=== PATIENT | male | born 1970 | race African-American/Black ===

== ENCOUNTER 2021-04-24 02:23 | Inpatient (IN) | payer MEDICAID, OTHER ==
[~2021-04-24] VITALS: Ht 193 cm; Wt 125.5 kg
[2021-04-24] MEDS ORDERED: DexAMETHasone SOD PHOS 10MG/1ML VIAL INJ IV ONE (04:00)
[2021-04-24] MEDS ORDERED: KETOROLAC TROMETH 30 MG/ML 1ML VIAL IV ONE (04:00)
[2021-04-24 04:06] LABS: Basophils # (auto) 0 10 ^3/uL (0-0.2); Basophils % (auto) 0.2 % (0.0-2.0); Eosinophils # (auto) 0 10 ^3/uL (0-0.8); Hematocrit 43.2 % (41.0-53.0); Hemoglobin 14.6 g/dL (13.5-17.5); Lymphocytes # (auto) 0.4 10 ^3/uL (0.4-5.4); Mean Corpuscular Hemoglobin 29.3 pg (28.0-32.0); Mean Corpuscular Hgb Conc. 33.7 g/dL (32.0-36.0); Monocytes # (auto) 0.3 10 ^3/uL (0-1.3); Neutrophils # (auto) 8.3 10 ^3/uL (1.6-8.6); Neutrophils % (auto) 92.8 % (37.0-80.0); Nucleated Red Blood Cells % 0.1 %; Red Blood Cells 4.96 10^6/uL (4.5-5.90); Red Cell Distribution Width 13.6 % (11.8-14.3); White Blood Cell 8.9 10^3/uL (4.4-10.8)
[2021-04-24 04:18] LABS: Albumin 3.2 g/dL (3.4-5.0); Calcium 8.4 mg/dL (8.5-10.1); Potassium 3.8 mmol/L (3.5-5.1)
[2021-04-24 04:26] LABS: BUN/Creatinine Ratio 11.3; Bilirubin, Total 0.7 mg/dL (0.2-1.0); Total Protein 7.9 g/dL (6.4-8.2)
[2021-04-24] MEDS ORDERED: cefTRIAXone 1GM/50ML D5W 50 ML IV ONE (07:15)
[2021-04-24] MEDS ORDERED: NITROGLYCERIN 0.4 MG SL TAB SL PRN (08:00)
[2021-04-24] MEDS ORDERED: AZITHROMYCIN 500MG/ 250ML 250 ML IV ONE (08:00)
[2021-04-24] MEDS ORDERED: DOCUSATE SOD 100 MG CAP PO PRN (08:00)
[2021-04-24] MEDS ORDERED: ACETAMINOPHEN 325 MG TAB PO PRN (08:00)
[2021-04-24] MEDS ORDERED: MORPHINE SULFATE INJECTION 2 MG/ML SYRG IV PRN (08:00)
[2021-04-24] MEDS ORDERED: HYDROcodone-ACET 5/325MG TAB PO PRN (08:00)
[2021-04-24] MEDS: POTASSIUM CHL 20MEQ/100ML 100 ML IV SCH ×2 (09:47→12:40)
[2021-04-24] MEDS: levoFLOXacin 500MG 100 ML IV SCH (09:47)
[2021-04-24] MEDS: ZINC SULFATE 220mg CAP or TAB PO SCH (09:47)
[2021-04-24] MEDS: MULTIPLE VITAMIN TAB PO SCH (09:47)
[2021-04-24] MEDS: ENOXAPARIN SOD 40 MG/0.4 ML SYRINGE SC SCH (09:48)
[2021-04-24] MEDS: ASCORBIC ACID 500 MG TAB PO SCH ×2 (09:48→20:46)
[2021-04-24 12:20] VITALS: BP 129/82
[2021-04-24 12:30] VITALS: BP 140/86
[2021-04-24] MEDS: ACETAMINOPHEN 500 MG TAB PO PRN ×2 (13:36→23:56)
[2021-04-24] MEDS ORDERED: REMDESIVIR PER PHARMACY 0 ML IV SCH (16:00)
[2021-04-24 17:00] VITALS: BP 153/89
[2021-04-24] MEDS ORDERED: REMDESIVIR 200 MG in NS 210ml LOADING DOSE ADULT IV ONE (18:00)
[2021-04-24 20:00] VITALS: BP 135/85
[2021-04-24] MEDS: ALBUTEROL SULF HFA 90MCG INH 200DOSE IN PRN (21:48)
[2021-04-24] MEDS: BUDESONIDE (INHALATION) 180 MCG IH IN SCH (21:48)
[2021-04-24 22:00] VITALS: BP 135/85
[2021-04-24] MEDS: MORPHINE SULFATE 4 MG/ML SYR/VIAL IV PRN (23:56)
[2021-04-25] VITALS (10 sets, daily range): BP systolic 131–161; BP diastolic 78–119
[2021-04-25 05:41] LABS: Basophils # (auto) 0 10 ^3/uL (0-0.2); Basophils % (auto) 0.4 % (0.0-2.0); Eosinophils # (auto) 0 10 ^3/uL (0-0.8); Hematocrit 43.4 % (41.0-53.0); Hemoglobin 14.5 g/dL (13.5-17.5); Lymphocytes # (auto) 0.8 10 ^3/uL (0.4-5.4); Lymphocytes % (auto) 7.6 % (10.0-50.0); Mean Corpuscular Hemoglobin 29.1 pg (28.0-32.0); Mean Corpuscular Hgb Conc. 33.3 g/dL (32.0-36.0); Mean Corpuscular Volume 87.4 fL (80.0-100.0); Monocytes # (auto) 0.3 10 ^3/uL (0-1.3); Neutrophils # (auto) 9.5 10 ^3/uL (1.6-8.6); Red Blood Cells 4.97 10^6/uL (4.5-5.90); White Blood Cell 10.7 10^3/uL (4.4-10.8)
[2021-04-25 06:00] LABS: Albumin 2.7 g/dL (3.4-5.0); BUN/Creatinine Ratio 10.3; Potassium 4.7 mmol/L (3.5-5.1)
[2021-04-25 06:03] LABS: Bilirubin, Total 0.8 mg/dL (0.2-1.0); Total Protein 6.7 g/dL (6.4-8.2)
[2021-04-25] MEDS: ALBUTEROL SULF HFA 90MCG INH 200DOSE IN PRN ×2 (06:08→23:29)
[2021-04-25] MEDS: BUDESONIDE (INHALATION) 180 MCG IH IN SCH ×3 (06:08→22:00)
[2021-04-25] MEDS: ACETAMINOPHEN 500 MG TAB PO PRN (07:54)
[2021-04-25] MEDS: ZINC SULFATE 220mg CAP or TAB PO SCH (10:28)
[2021-04-25] MEDS: levoFLOXacin 500MG 100 ML IV SCH (10:28)
[2021-04-25] MEDS: MULTIPLE VITAMIN TAB PO SCH (10:28)
[2021-04-25] MEDS: IVERMECTIN 3 MG TAB PO SCH (10:28)
[2021-04-25] MEDS: ENOXAPARIN SOD 40 MG/0.4 ML SYRINGE SC SCH (10:29)
[2021-04-25] MEDS: ASCORBIC ACID 500 MG TAB PO SCH ×2 (10:29→22:53)
[2021-04-25] MEDS: REMDESIVIR 100mg 100 MG in SODIUM CHL 0.9% 230 ML IV SCH (16:31)
[2021-04-25] MEDS ORDERED: hydrALAZINE HCL 20 MG/ML VL IV PRN (18:00)
[2021-04-26] MEDS: MORPHINE SULFATE 4 MG/ML SYR/VIAL IV PRN (01:21)
[2021-04-26 05:00] VITALS: BP 128/67
[2021-04-26] MEDS: ALBUTEROL SULF HFA 90MCG INH 200DOSE IN PRN (08:58)
[2021-04-26] MEDS: BUDESONIDE (INHALATION) 180 MCG IH IN SCH ×2 (08:58→18:56)
[2021-04-26 09:00] VITALS: BP 158/84
[2021-04-26] MEDS: levoFLOXacin 500MG 100 ML IV SCH (10:09)
[2021-04-26] MEDS: IVERMECTIN 3 MG TAB PO SCH (10:10)
[2021-04-26] MEDS: ASCORBIC ACID 500 MG TAB PO SCH ×2 (10:10→22:00)
[2021-04-26] MEDS: MULTIPLE VITAMIN TAB PO SCH (10:10)
[2021-04-26] MEDS: ENOXAPARIN SOD 40 MG/0.4 ML SYRINGE SC SCH (10:10)
[2021-04-26] MEDS: ZINC SULFATE 220mg CAP or TAB PO SCH (10:10)
[2021-04-26 11:15] LABS: Potassium 4.4 mmol/L (3.5-5.1)
[2021-04-26 11:25] LABS: Albumin 2.6 g/dL (3.4-5.0); BUN/Creatinine Ratio 18.1; Bilirubin, Total 0.9 mg/dL (0.2-1.0); Calcium 8.4 mg/dL (8.5-10.1); Total Protein 7.2 g/dL (6.4-8.2)
[2021-04-26 13:00] VITALS: BP 128/74
[2021-04-26] MEDS: REMDESIVIR 100mg 100 MG in SODIUM CHL 0.9% 230 ML IV SCH (14:12)
[2021-04-26 16:39] VITALS: BP 160/100
[2021-04-26 22:00] VITALS: BP 158/97
[2021-04-27] VITALS (24 sets, daily range): BP systolic 93–167; BP diastolic 50–109
[2021-04-27] MEDS: ALBUTEROL SULF 2.5 MG/0.5ML(0.5%) NEB SOLN NEB PRN ×2 (06:37→22:37)
[2021-04-27] MEDS: BUDESONIDE (INHALATION) 0.5 MG/2 ML NEB NEB SCH ×2 (06:37→22:38)
[2021-04-27] MEDS: ASCORBIC ACID 500 MG TAB PO SCH ×2 (09:18→22:31)
[2021-04-27] MEDS: levoFLOXacin 500MG 100 ML IV SCH (09:18)
[2021-04-27] MEDS: ZINC SULFATE 220mg CAP or TAB PO SCH (09:18)
[2021-04-27] MEDS: MULTIPLE VITAMIN TAB PO SCH (09:18)
[2021-04-27] MEDS: ENOXAPARIN SOD 40 MG/0.4 ML SYRINGE SC SCH ×2 (09:18→22:31)
[2021-04-27] MEDS: ACETAMINOPHEN 500 MG TAB PO PRN (09:20)
[2021-04-27] MEDS: IVERMECTIN 3 MG TAB PO SCH (09:41)
[2021-04-27] MEDS ORDERED: LORazepam 2MG/ML-1ML VIAL IV PRN (10:00)
[2021-04-27] MEDS ORDERED: ACETAMINOPHEN 650 MG RECT SUPP PR PRN (12:00)
[2021-04-27] MEDS: ACETAMINOPHEN 650 MG RECT SUPP PR PRN ×2 (13:58→23:24)
[2021-04-27] MEDS ORDERED: METOPROLOL TARTRATE 1MG/1ML-5ML VIAL IV ONE (15:00)
[2021-04-27] MEDS ORDERED: METOPROLOL SUCCINATE XL 50 MG TAB PO ONE (15:15)
[2021-04-27 15:34] LABS: Albumin 2.4 g/dL (3.4-5.0); Calcium 8.7 mg/dL (8.5-10.1); Potassium 4.6 mmol/L (3.5-5.1)
[2021-04-27 15:37] LABS: BUN/Creatinine Ratio 19.1; Bilirubin, Total 1.2 mg/dL (0.2-1.0)
[2021-04-27] MEDS: REMDESIVIR 100mg 100 MG in SODIUM CHL 0.9% 230 ML IV SCH (15:59)
[2021-04-27] MEDS ORDERED: SUCCINYLCHOLINE CHLORIDE 20 MG/ML 10ML VIAL IV ONE (16:14)
[2021-04-27] MEDS ORDERED: ROCURONIUM 10MG/ML 10ML VIAL IV ONE (16:14)
[2021-04-27] MEDS ORDERED: ETOMIDATE (2MG/ML) 20ML VIAL IV ONE (16:14)
[2021-04-27] MEDS ORDERED: NOREPINEPHRINE 8 MG/250ML KIT 250 ML IV ONE (16:24)
[2021-04-27] MEDS ORDERED: PROPOFOL 100 ML IV ONE (16:24)
[2021-04-27] MEDS ORDERED: fentaNYL Drip 2500mCg/250mlNS 250 ML IV ONE (16:25)
[2021-04-27] MEDS ORDERED: PROPOFOL 200 ML IV ONE (18:45)
[2021-04-27] MEDS: NOREPINEPHRINE 8 MG/250ML KIT 250 ML IV SCH (20:09)
[2021-04-27] MEDS: PHENYLEPHRINE IV 250 ML IV SCH (21:00)
[2021-04-27] MEDS: MIDAZOLAM DRIP 50 mg/50mL 50 ML IV SCH (23:23)
[2021-04-28] VITALS (88 sets, daily range): BP systolic 85–133; BP diastolic 44–78
[2021-04-28] MEDS ORDERED: PROPOFOL 100 ML IV ONE (00:57)
[2021-04-28] MEDS: PROPOFOL 100 ML IV SCH ×3 (01:15→16:40)
[2021-04-28] MEDS: fentaNYL Drip 2500mCg/250mlNS 250 ML IV SCH ×2 (01:19→14:50)
[2021-04-28] MEDS: PHENYLEPHRINE IV 250 ML IV SCH ×3 (05:19→21:33)
[2021-04-28 07:17] LABS: BUN/Creatinine Ratio 17.3; Bilirubin, Total 2.5 mg/dL (0.2-1.0); Calcium 7.9 mg/dL (8.5-10.1); Total Protein 6.3 g/dL (6.4-8.2)
[2021-04-28] MEDS: levoFLOXacin 500MG 100 ML IV SCH (07:48)
[2021-04-28] MEDS: ALBUTEROL SULF 2.5 MG/0.5ML(0.5%) NEB SOLN NEB PRN ×3 (08:44→18:58)
[2021-04-28] MEDS: BUDESONIDE (INHALATION) 0.5 MG/2 ML NEB NEB SCH ×2 (08:45→18:58)
[2021-04-28] MEDS: ENOXAPARIN SOD 40 MG/0.4 ML SYRINGE SC SCH ×2 (09:17→22:35)
[2021-04-28] MEDS: PANTOPRAZOLE 40 MG/10 ML VIAL INJ IV SCH (09:17)
[2021-04-28] MEDS: IVERMECTIN 3 MG TAB PO SCH (09:18)
[2021-04-28] MEDS: ZINC SULFATE 220mg CAP or TAB PO SCH (09:18)
[2021-04-28] MEDS: ASCORBIC ACID 500 MG TAB PO SCH ×2 (09:18→22:34)
[2021-04-28] MEDS ORDERED: PANTOPRAZOLE 40 MG/10 ML VIAL INJ IV SCH (10:00)
[2021-04-28] MEDS ORDERED: ENOXAPARIN SOD 40 MG/0.4 ML SYRINGE SC SCH (10:00)
[2021-04-28] MEDS: MIDAZOLAM DRIP 50 mg/50mL 50 ML IV SCH ×4 (10:35→22:36)
[2021-04-28] MEDS: METOPROLOL SUCCINATE XL 50 MG TAB PO SCH ×2 (14:48→20:00)
[2021-04-28] MEDS: METOPROLOL TARTRATE 1MG/1ML-5ML VIAL IV PRN (14:55)
[2021-04-28] MEDS: ACETAMINOPHEN 650 MG RECT SUPP PR PRN (15:55)
[2021-04-28] MEDS: REMDESIVIR 100mg 100 MG in SODIUM CHL 0.9% 230 ML IV SCH (15:56)
[2021-04-28] MEDS ORDERED: SODIUM CHLORIDE 0.9% 500 ML IV ONE (17:30)
[2021-04-28] MEDS: MULTIPLE VITAMIN TAB PO SCH (17:36)
[2021-04-28] MEDS: SODIUM CHLORIDE 0.9% 1,000 ML IV SCH (17:47)
[2021-04-28] MEDS: NOREPINEPHRINE 8 MG/250ML KIT 250 ML IV SCH (21:33)
[2021-04-28] MEDS: METOPROLOL TARTRATE 25 MG TAB PO SCH (21:34)
[2021-04-29] VITALS (82 sets, daily range): BP systolic 68–135; BP diastolic 32–81
[2021-04-29] MEDS: PHENYLEPHRINE IV 250 ML IV SCH ×2 (01:43→14:40)
[2021-04-29] MEDS: PROPOFOL 100 ML IV SCH ×2 (02:38)
[2021-04-29] MEDS: MIDAZOLAM DRIP 50 mg/50mL 50 ML IV SCH (02:38)
[2021-04-29] MEDS: SODIUM CHLORIDE 0.9% 1,000 ML IV SCH ×2 (02:39)
[2021-04-29 04:37] LABS: Basophils # (auto) 0.1 10 ^3/uL (0-0.2); Basophils % (auto) 0.9 % (0.0-2.0); Eosinophils # (auto) 0.2 10 ^3/uL (0-0.8); Eosinophils % (auto) 1.2 % (0.0-7.0); Hematocrit 36.1 % (41.0-53.0); Hemoglobin 12.1 g/dL (13.5-17.5); Lymphocytes # (auto) 0.7 10 ^3/uL (0.4-5.4); Lymphocytes % (auto) 4.2 % (10.0-50.0); Mean Corpuscular Hemoglobin 29.9 pg (28.0-32.0); Mean Corpuscular Hgb Conc. 33.5 g/dL (32.0-36.0); Mean Corpuscular Volume 89.3 fL (80.0-100.0); Monocytes # (auto) 0.2 10 ^3/uL (0-1.3); Monocytes % (auto) 1.4 % (0.0-12.0); Neutrophils # (auto) 14.4 10 ^3/uL (1.6-8.6); Neutrophils % (auto) 92.3 % (37.0-80.0); Nucleated Red Blood Cells % 0.3 %; Red Blood Cells 4.05 10^6/uL (4.5-5.90); Red Cell Distribution Width 14.8 % (11.8-14.3); White Blood Cell 15.5 10^3/uL (4.4-10.8)
[2021-04-29 04:53] LABS: Albumin 1.6 g/dL (3.4-5.0); BUN/Creatinine Ratio 13.2; Potassium 5.3 mmol/L (3.5-5.1)
[2021-04-29 04:56] LABS: Bilirubin, Total 4.2 mg/dL (0.2-1.0); Total Protein 5.7 g/dL (6.4-8.2)
[2021-04-29] MEDS: PANTOPRAZOLE 40 MG/10 ML VIAL INJ IV SCH (10:12)
[2021-04-29] MEDS: levoFLOXacin 500MG 100 ML IV SCH (10:12)
[2021-04-29] MEDS: ZINC SULFATE 220mg CAP or TAB PO SCH (10:12)
[2021-04-29] MEDS: MULTIPLE VITAMIN TAB PO SCH (10:13)
[2021-04-29] MEDS: IVERMECTIN 3 MG TAB PO SCH (10:13)
[2021-04-29] MEDS: ENOXAPARIN SOD 40 MG/0.4 ML SYRINGE SC SCH (10:13)
[2021-04-29] MEDS: ASCORBIC ACID 500 MG TAB PO SCH (10:13)
[2021-04-29] MEDS: BUDESONIDE (INHALATION) 0.5 MG/2 ML NEB NEB SCH ×2 (10:19→21:44)
[2021-04-29] MEDS: METOPROLOL TARTRATE 25 MG TAB PO SCH (12:00)
[2021-04-29] MEDS ORDERED: SODIUM CHLORIDE 0.9% 1,000 ML IV SCH (13:00)
[2021-04-29] MEDS ORDERED: FUROSEMIDE 40 MG/4 ML VIAL IV ONE (13:00)
[2021-04-29] MEDS ORDERED: SODIUM ZIRCONIUM CYCL 10 GM PAK PO ONE (13:00)
[2021-04-29] MEDS: fentaNYL Drip 2500mCg/250mlNS 250 ML IV SCH (15:28)
[2021-04-29] MEDS ORDERED: ROCURONIUM 10MG/ML 10ML VIAL IV ONE ×3 (17:14→18:00)
[2021-04-29] MEDS: ACETAMINOPHEN 650 MG RECT SUPP PR PRN (17:49)
[2021-04-29] MEDS ORDERED: fentaNYL Drip 2500mCg/250mlNS 250 ML IV SCH (18:00)
[2021-04-29] MEDS ORDERED: PROPOFOL 100 ML IV SCH (18:00)
[2021-04-29] MEDS ORDERED: ROCURONIUM 10MG/ML 10ML VIAL IV PRN (18:00)
[2021-04-29] MEDS: METOPROLOL TARTRATE 1MG/1ML-5ML VIAL IV PRN (18:07)
[2021-04-29] MEDS: NOREPINEPHRINE 8 MG/250ML KIT 250 ML IV SCH (19:45)
[2021-04-29] MEDS ORDERED: SODIUM BICARBONATE 8.4% INJ 50ML SYRINGE ONE ×3 (20:19→21:02)
[2021-04-29] MEDS ORDERED: DEXTROSE 50% SYRINGE 50 ML IV ONE (20:26)
[2021-04-29] MEDS ORDERED: VASOPRESSIN 50 UNITS in D5W 5% 247.5 ML IV SCH (21:00)
[2021-04-29] MEDS ORDERED: EPINEPHrine HCL 1 MG/10 ML SYRG ONE (21:03)
[2021-04-29] MEDS ORDERED: EPINEPHrine HCL 250 ML IV ONE (21:06)
[2021-04-29] MEDS ORDERED: EPINEPHrine HCL 250 ML IV SCH (21:15)
[2021-04-29 21:30] LABS: Potassium 5.3 mmol/L (3.5-5.1)
[2021-04-29 21:34] LABS: Bilirubin, Total 2.1 mg/dL (0.2-1.0)
[2021-04-29 21:36] LABS: BUN/Creatinine Ratio 15.8
[2021-04-29] MEDS: ALBUTEROL SULF 2.5 MG/0.5ML(0.5%) NEB SOLN NEB PRN (21:43)
[2021-04-29] MEDS ORDERED: SODIUM ZIRCONIUM CYCL 10 GM PAK PO SCH (22:00)
[2021-04-29 22:58] LABS: Albumin 0.4 g/dL (3.4-5.0); Total Protein 3.2 g/dL (6.4-8.2)
[2021-04-30] MEDS ORDERED: DexAMETHasone SOD PHOS 10MG/1ML VIAL INJ IV SCH (10:00)
[2021-04-30] MEDS ORDERED: levoFLOXacin 250MG 50 ML IV SCH (10:00)
== END 2021-04-30 03:11 | DRG 137 ==
LOC: ER 02:23 → EDBD 02:23 → TELE 07:46 → TELE-EAST 11:45 → ICU WEST 04-27 18:00
PROVIDERS: ADMIT Internal Medicine; ATTEND Internal Medicine
PROC: XW033E5 Introduction of Remdesivir Anti-infective into Peripheral Vein, Percutaneous Approach, New Technology Group 5 (ICD-10-PCS; 2021-04-24)
PROC: 5A09457 Assistance with Respiratory Ventilation, 24-96 Consecutive Hours, Continuous Positive Airway Pressure (ICD-10-PCS; 2021-04-25)
PROC: 05HA33Z Insertion of Infusion Device into Left Brachial Vein, Percutaneous Approach (ICD-10-PCS; 2021-04-25)
PROC: B54NZZA Ultrasonography of Left Upper Extremity Veins, Guidance (ICD-10-PCS; 2021-04-25)
PROC: 5A1945Z Respiratory Ventilation, 24-96 Consecutive Hours (ICD-10-PCS; principal; 2021-04-27)
PROC: 0BH17EZ Insertion of Endotracheal Airway into Trachea, Via Natural or Artificial Opening (ICD-10-PCS; 2021-04-27)
PROC: 06HY33Z Insertion of Infusion Device into Lower Vein, Percutaneous Approach (ICD-10-PCS; 2021-04-27)
PROC: 5A12012 Performance of Cardiac Output, Single, Manual (ICD-10-PCS; 2021-04-29)
DX: U07.1 COVID-19 (principal); J96.01 Acute respiratory failure with hypoxia; J12.82 Pneumonia due to coronavirus disease 2019; N17.0 Acute kidney failure with tubular necrosis; R57.9 Shock, unspecified; E66.9 Obesity, unspecified; J98.11 Atelectasis; E88.09 Other disorders of plasma-protein metabolism, not elsewhere classified; E87.5 Hyperkalemia; J98.2 Interstitial emphysema; I10 Essential (primary) hypertension; Z68.30 Body mass index [BMI] 30.0-30.9, adult
CPT/HCPCS: 36415; 36600; 71045; 80053; 82728; 82805; 82962; 83615; 83735; 83880; 84443; 84484; 85025; 85379; 86141; 87040; 87070; 87077; 87186; 87205; 87426; 92950; 93005; 93306; 93970; 94002; 94003; 94640; 94660; 96365; 96367; 96368; 96372; 96375; C9113; G0378; J0171; J0330; J0696; J1100; J1885; J1956; J2250; J2704; J3480; J7060